=== PATIENT | female | born 1950 | race Caucasian/White ===

== ENCOUNTER → 2021-02-14 | Day surgery (SDC) | payer MEDICARE, OTHER ==
[~2021-02-14] MED LIST: ASPIR 8181 MG PO; B-12500 MCG PO; CALTRATE 600 W1 EACH PO; CHONDR SU A NA/HYALUR SOD 1 EACH KIT IO ONE; COQ-10100 MG PO; EVISTA60 MG PO; FISH OIL OMEGA1 EACH PO; FOSAMAX70 MG PO; OR PHACO EYE KIT ONE; PREOP PHACO EYE KIT ONE; PROBIOTICS PO; VITAMIN D31000 UNIT PO; VITAMIN E400 UNI1 PO
[2021-02-14 11:30] VITALS: BP 131/67
== END | disposition home or self-care (01) ==
LOC: OR 09:06
PROVIDERS: ATTEND Ophthalmology
DX: H25.12 Age-related nuclear cataract, left eye (principal); E78.5 Hyperlipidemia, unspecified; M85.80 Other specified disorders of bone density and structure, unspecified site; Z01.812 Encounter for preprocedural laboratory examination; Z20.822 Contact with and (suspected) exposure to COVID-19; Z79.82 Long term (current) use of aspirin
CPT/HCPCS: 66984; U0002

== ENCOUNTER → 2021-02-28 | Day surgery (SDC) | payer MEDICARE, OTHER ==
[~2021-02-28] MED LIST changes: -CHONDR SU A NA/HYALUR SOD 1 EACH KIT IO ONE; +FENTANYL CITRATE/PF 100MCG/2 ML INJ ONE; +MIDAZOLAM HCL 2 MG/2 ML VIAL ONE
[2021-02-28 11:40] VITALS: BP 96/40
== END | disposition home or self-care (01) ==
LOC: OR 09:28
PROVIDERS: ATTEND Ophthalmology
DX: H25.11 Age-related nuclear cataract, right eye (principal); E78.5 Hyperlipidemia, unspecified; M85.80 Other specified disorders of bone density and structure, unspecified site; Z01.812 Encounter for preprocedural laboratory examination; Z20.822 Contact with and (suspected) exposure to COVID-19; Z79.82 Long term (current) use of aspirin
CPT/HCPCS: 66984; J2250; J3010; U0002